=== PATIENT | female | born 1975 | race Caucasian/White ===

== ENCOUNTER 2021-06-08 18:18 | Inpatient (IN) ==
[2021-06-08] MEDS ORDERED: Naloxone 0.4 MG/ML INJ IVP PRN (22:25)
[2021-06-09 00:56] LABS: Calcium 7.3 mg/dL (8.6-10.3); Potassium 6.9 mEq/L (3.5-5.1)
[2021-06-09] MEDS ORDERED: 0.9 % Sodium Chloride 1,000 ML IVC SCH (01:00)
[2021-06-09 05:29] LABS: Basophils % 0.1 %; Eosinophils # 0.1 K/mcL (0.0-0.6); Eosinophils % 1.2 %; Hematocrit 24.4 % (35.3-44.9); Hemoglobin 7.1 g/dL (11.5-15.4); Immature Granulocytes % 0.3 % (0-4); Lymphocytes # 2.3 K/mcL (0.6-4.6); Lymphocytes % 34.3 %; Mean Corpuscular HGB Conc 29.1 g/dL (31.6-35.5); Mean Corpuscular Hemoglobin 27.6 pg (28.0-33.3); Mean Corpuscular Volume 94.9 fL (83.0-100.0); Mean Platelet Volume 10.7 fL (9.4-12.4); Monocytes # 0.4 K/mcL (0.0-1.3); Monocytes % 5.3 %; Platelet Count 111 K/mcL (140-400); Red Blood Count 2.57 M/mcL (3.82-4.97); Red Cell Distribution Width 13.7 % (11.5-14.5); Segmented Neutrophils % 58.8 %; White Blood Count 6.8 K/mcL (4.3-11.1)
[2021-06-09 05:48] LABS: Albumin/Globulin Ratio 1.7 (1.1-2.2); Bilirubin,Indirect 0.2 mg/dL (0.0-1.0); Bilirubin,Total 0.2 mg/dL (0.3-1.0); Globulin 1.8 g/dL (2.4-3.5); Total Protein 4.8 g/dL (6.4-8.9)
[2021-06-09 05:49] LABS: Calcium 7.3 mg/dL (8.6-10.3); Magnesium 1.5 mg/dL (1.6-2.6); Potassium 6.2 mEq/L (3.5-5.1)
[2021-06-09] MEDS ORDERED: *HR* Heparin 5,000 UNIT/ML VIAL SQ SCH (06:00)
[2021-06-09] MEDS ORDERED: Naloxone 0.4 MG/ML INJ IVP PRN (11:05)
[2021-06-09] MEDS: SODIUM ZIRCONIUM CYCLOSILICATE 5 GM POWD.PACK PO SCH (12:31)
[2021-06-09] MEDS ORDERED: Calcium Gluconate 1gm/50mL 1 GM/50 ML BAG IVPB ONE (12:53)
[2021-06-09] MEDS ORDERED: Magnesium Sulfate 1 GM/102 ML PIGGYBACK IVPB ONE (12:54)
[2021-06-09 16:55] LABS: Calcium 7.6 mg/dL (8.6-10.3); Potassium 5.7 mEq/L (3.5-5.1)
[2021-06-09] MEDS: *HR* Heparin 5,000 UNIT/ML VIAL SQ SCH (18:15)
[2021-06-09] MEDS ORDERED: hydrALAZINE 25 MG TABLET PO SCH (21:00)
[2021-06-09] MEDS: hydrALAZINE 25 MG TABLET PO SCH (21:01)
[2021-06-10] MEDS ORDERED: Gabapentin 400 MG CAPSULE PO ONE (00:45)
[2021-06-10] MEDS: *HR* Heparin 5,000 UNIT/ML VIAL SQ SCH ×2 (05:12→17:15)
[2021-06-10 06:18] LABS: Calcium 7.7 mg/dL (8.6-10.3); Potassium 5.4 mEq/L (3.5-5.1); Red Blood Count 2.69 M/mcL (3.82-4.97); White Blood Count 7.6 K/mcL (4.3-11.1)
[2021-06-10 06:19] LABS: Hematocrit 24.5 % (35.3-44.9); Hemoglobin 7.4 g/dL (11.5-15.4); Mean Corpuscular HGB Conc 30.2 g/dL (31.6-35.5); Mean Corpuscular Hemoglobin 27.5 pg (28.0-33.3); Mean Corpuscular Volume 91.1 fL (83.0-100.0); Mean Platelet Volume 10.7 fL (9.4-12.4); Platelet Count 127 K/mcL (140-400); Red Cell Distribution Width 13.2 % (11.5-14.5)
[2021-06-10 06:19] LABS: VBG Ionized Calcium 1.12 mmol/L (1.15-1.35)
[2021-06-10] MEDS ORDERED: SUMAtriptan succinate 50 MG TABLET PO PRN (08:00)
[2021-06-10] MEDS ORDERED: Furosemide 20 MG TABLET PO PRN (08:13)
[2021-06-10] MEDS: SODIUM ZIRCONIUM CYCLOSILICATE 5 GM POWD.PACK PO SCH (08:21)
[2021-06-10] MEDS: Aspirin Enteric Coated 81 MG Tablet PO SCH (08:22)
[2021-06-10] MEDS: amLODIPine 5 MG TABLET PO SCH (08:23)
[2021-06-10] MEDS: FLUoxetine 20 MG CAPSULE PO SCH (08:23)
[2021-06-10] MEDS ORDERED: FLUoxetine 20 MG CAPSULE PO SCH (09:00)
[2021-06-10] MEDS ORDERED: Aspirin Enteric Coated 81 MG Tablet PO SCH (09:00)
[2021-06-10] MEDS: clonazePAM 0.5 MG TABLET PO SCH (10:46)
[2021-06-10] MEDS: Ascorbic Acid 500 MG TABLET PO SCH (10:46)
[2021-06-10] MEDS ORDERED: *HR* OxyCODONE/APAP 5/325 TABLET PO PRN (17:43)
[2021-06-10] MEDS: hydrALAZINE 25 MG TABLET PO SCH (20:26)
[2021-06-11 03:03] LABS: Basophils % 0.3 %; Eosinophils # 0.1 K/mcL (0.0-0.6); Eosinophils % 1.1 %; Hematocrit 24.2 % (35.3-44.9); Hemoglobin 7.2 g/dL (11.5-15.4); Immature Granulocytes % 0.2 % (0-4); Lymphocytes % 30.8 %; Mean Corpuscular HGB Conc 29.8 g/dL (31.6-35.5); Mean Corpuscular Volume 90.6 fL (83.0-100.0); Monocytes # 0.3 K/mcL (0.0-1.3); Monocytes % 4.4 %; Neutrophils # 4.2 K/mcL (1.6-8.9); Platelet Count 135 K/mcL (140-400); Red Blood Count 2.67 M/mcL (3.82-4.97); Red Cell Distribution Width 13.2 % (11.5-14.5); Segmented Neutrophils % 63.2 %; White Blood Count 6.6 K/mcL (4.3-11.1)
[2021-06-11 03:23] LABS: Calcium 7.7 mg/dL (8.6-10.3); Magnesium 1.5 mg/dL (1.6-2.6); Phosphorous 4.9 mg/dL (2.7-4.5)
[2021-06-11] MEDS: *HR* Heparin 5,000 UNIT/ML VIAL SQ SCH ×2 (05:34→17:21)
[2021-06-11] MEDS: Ondansetron 4 MG/2 ML VIAL IVP PRN ×2 (08:41→19:18)
[2021-06-11] MEDS: Aspirin Enteric Coated 81 MG Tablet PO SCH (10:40)
[2021-06-11] MEDS: SODIUM ZIRCONIUM CYCLOSILICATE 5 GM POWD.PACK PO SCH (10:41)
[2021-06-11] MEDS: amLODIPine 5 MG TABLET PO SCH (10:41)
[2021-06-11] MEDS: FLUoxetine 20 MG CAPSULE PO SCH (10:41)
[2021-06-11] MEDS: Ascorbic Acid 500 MG TABLET PO SCH (10:41)
[2021-06-11] MEDS: clonazePAM 0.5 MG TABLET PO SCH (10:41)
[2021-06-11 12:40] LABS: Bilirubin,Urine Negative (Negative); Blood,Urine Trace (Negative); Clarity,Urine Clear (Clear); Color,Urine Colorless (Yellow); Glucose,Urine (UA) Normal (Normal); Ketones,Urine Negative (Negative); Leukocyte Esterase,Urine Moderate (Negative); Mucus,Urine Few per lpf (None-Few); Nitrite,Urine Negative (Negative); Protein,Urine 200 mg/dL (Neg-Trace); Specific Gravity,Urine 1.009 (1.010-1.025); Squamous Epithelial Cell,Urine Few per hpf (None-Few); Urobilinogen,Urine Normal (Normal); WBC,Urine 30-50 per hpf (0-3)
[2021-06-11 13:13] LABS: Sodium, Urine 94.4 mEq/L
[2021-06-11] MEDS: Morphine Sulfate 2 MG/ML SYRINGE IVP PRN ×2 (19:18→22:59)
[2021-06-11] MEDS: hydrALAZINE 25 MG TABLET PO SCH (20:04)
[2021-06-12] MEDS: Ondansetron 4 MG/2 ML VIAL IVP PRN (00:54)
[2021-06-12] MEDS: *HR* Heparin 5,000 UNIT/ML VIAL SQ SCH ×2 (06:20→16:34)
[2021-06-12] MEDS: Morphine Sulfate 2 MG/ML SYRINGE IVP PRN ×2 (06:21→12:02)
[2021-06-12 09:25] LABS: Basophils % 0.3 %; Eosinophils # 0.1 K/mcL (0.0-0.6); Hematocrit 25.3 % (35.3-44.9); Hemoglobin 7.5 g/dL (11.5-15.4); Immature Granulocytes % 0.3 % (0-4); Lymphocytes # 1.6 K/mcL (0.6-4.6); Lymphocytes % 27.1 %; Mean Corpuscular HGB Conc 29.6 g/dL (31.6-35.5); Mean Corpuscular Hemoglobin 26.9 pg (28.0-33.3); Mean Corpuscular Volume 90.7 fL (83.0-100.0); Mean Platelet Volume 11.2 fL (9.4-12.4); Monocytes # 0.3 K/mcL (0.0-1.3); Monocytes % 4.8 %; Neutrophils # 3.9 K/mcL (1.6-8.9); Platelet Count 131 K/mcL (140-400); Red Blood Count 2.79 M/mcL (3.82-4.97); Red Cell Distribution Width 13.2 % (11.5-14.5); Segmented Neutrophils % 66.5 %; White Blood Count 5.9 K/mcL (4.3-11.1)
[2021-06-12 09:41] LABS: Calcium 8.1 mg/dL (8.6-10.3); Magnesium 1.7 mg/dL (1.6-2.6); Phosphorous 4.2 mg/dL (2.7-4.5); Potassium 5.3 mEq/L (3.5-5.1)
[2021-06-12] MEDS: Aspirin Enteric Coated 81 MG Tablet PO SCH (10:15)
[2021-06-12] MEDS: clonazePAM 0.5 MG TABLET PO SCH (10:16)
[2021-06-12] MEDS: FLUoxetine 20 MG CAPSULE PO SCH (10:16)
[2021-06-12] MEDS: amLODIPine 5 MG TABLET PO SCH (10:16)
[2021-06-12] MEDS: Ascorbic Acid 500 MG TABLET PO SCH (10:16)
[2021-06-12] MEDS ORDERED: SODIUM ZIRCONIUM CYCLOSILICATE 5 GM POWD.PACK PO STA (10:35)
[2021-06-12] MEDS: *HR* OxyCODONE/APAP 5/325 TABLET PO PRN (21:40)
[2021-06-12] MEDS: hydrALAZINE 25 MG TABLET PO SCH (21:40)
[2021-06-13 01:20] LABS: Basophils % 0.2 %; Eosinophils # 0.1 K/mcL (0.0-0.6); Hematocrit 23.7 % (35.3-44.9); Hemoglobin 7.1 g/dL (11.5-15.4); Immature Granulocytes % 0.2 % (0-4); Lymphocytes # 1.6 K/mcL (0.6-4.6); Mean Corpuscular Hemoglobin 26.8 pg (28.0-33.3); Mean Corpuscular Volume 89.4 fL (83.0-100.0); Mean Platelet Volume 10.3 fL (9.4-12.4); Monocytes # 0.2 K/mcL (0.0-1.3); Monocytes % 4.7 %; Platelet Count 120 K/mcL (140-400); Red Blood Count 2.65 M/mcL (3.82-4.97); Red Cell Distribution Width 13.2 % (11.5-14.5); Segmented Neutrophils % 61.9 %; White Blood Count 4.9 K/mcL (4.3-11.1)
[2021-06-13 01:41] LABS: Magnesium 1.5 mg/dL (1.6-2.6); Phosphorous 3.5 mg/dL (2.7-4.5); Potassium 5.2 mEq/L (3.5-5.1)
[2021-06-13] MEDS: *HR* Heparin 5,000 UNIT/ML VIAL SQ SCH ×2 (05:11→17:30)
[2021-06-13] MEDS: amLODIPine 5 MG TABLET PO SCH (09:48)
[2021-06-13] MEDS: Aspirin Enteric Coated 81 MG Tablet PO SCH (09:48)
[2021-06-13] MEDS: FLUoxetine 20 MG CAPSULE PO SCH (09:48)
[2021-06-13] MEDS: Ascorbic Acid 500 MG TABLET PO SCH (09:48)
[2021-06-13] MEDS: clonazePAM 0.5 MG TABLET PO SCH (09:48)
[2021-06-13] MEDS: Ondansetron 4 MG/2 ML VIAL IVP PRN (09:55)
[2021-06-13] MEDS: *HR* OxyCODONE/APAP 5/325 TABLET PO PRN ×2 (09:55→17:30)
[2021-06-13] MEDS: Morphine Sulfate 2 MG/ML SYRINGE IVP PRN ×2 (10:52→23:08)
[2021-06-13] MEDS: Magnesium Oxide 400 MG TABLET PO SCH (14:33)
[2021-06-13] MEDS: hydrALAZINE 25 MG TABLET PO SCH (19:58)
[2021-06-14 06:39] LABS: Basophils % 0.4 %; Eosinophils # 0.1 K/mcL (0.0-0.6); Eosinophils % 1.5 %; Hematocrit 24.1 % (35.3-44.9); Hemoglobin 7.4 g/dL (11.5-15.4); Immature Granulocytes % 0.2 % (0-4); Lymphocytes # 1.8 K/mcL (0.6-4.6); Mean Corpuscular HGB Conc 30.7 g/dL (31.6-35.5); Mean Corpuscular Hemoglobin 27.9 pg (28.0-33.3); Mean Corpuscular Volume 90.9 fL (83.0-100.0); Mean Platelet Volume 10.1 fL (9.4-12.4); Monocytes # 0.3 K/mcL (0.0-1.3); Monocytes % 4.9 %; Neutrophils # 3.3 K/mcL (1.6-8.9); Platelet Count 136 K/mcL (140-400); Red Blood Count 2.65 M/mcL (3.82-4.97); Red Cell Distribution Width 13.6 % (11.5-14.5); White Blood Count 5.5 K/mcL (4.3-11.1)
[2021-06-14 06:51] LABS: Calcium 8.2 mg/dL (8.6-10.3); Magnesium 1.9 mg/dL (1.6-2.6); Phosphorous 3.8 mg/dL (2.7-4.5); Potassium 5.2 mEq/L (3.5-5.1)
[2021-06-14] MEDS: Magnesium Oxide 400 MG TABLET PO SCH (08:59)
[2021-06-14] MEDS: clonazePAM 0.5 MG TABLET PO SCH (08:59)
[2021-06-14] MEDS: Aspirin Enteric Coated 81 MG Tablet PO SCH (08:59)
[2021-06-14] MEDS: Ascorbic Acid 500 MG TABLET PO SCH (08:59)
[2021-06-14] MEDS: FLUoxetine 20 MG CAPSULE PO SCH (08:59)
[2021-06-14] MEDS: amLODIPine 5 MG TABLET PO SCH (09:00)
[2021-06-14] MEDS: SODIUM ZIRCONIUM CYCLOSILICATE 5 GM POWD.PACK PO SCH (09:00)
[2021-06-14] MEDS: *HR* OxyCODONE/APAP 5/325 TABLET PO PRN ×2 (09:06→21:19)
[2021-06-14] MEDS: *HR* Heparin 5,000 UNIT/ML VIAL SQ SCH ×2 (09:07→17:27)
[2021-06-14] MEDS: Morphine Sulfate 2 MG/ML SYRINGE IVP PRN (14:25)
[2021-06-14] MEDS: hydrALAZINE 25 MG TABLET PO SCH (21:18)
[2021-06-15] MEDS: *HR* Heparin 5,000 UNIT/ML VIAL SQ SCH ×2 (06:00→18:01)
[2021-06-15 06:44] LABS: Basophils % 0.4 %; Eosinophils # 0.1 K/mcL (0.0-0.6); Eosinophils % 1.4 %; Hematocrit 25.7 % (35.3-44.9); Hemoglobin 7.9 g/dL (11.5-15.4); Immature Granulocytes % 0.2 % (0-4); Lymphocytes # 1.5 K/mcL (0.6-4.6); Lymphocytes % 31.1 %; Mean Corpuscular HGB Conc 30.7 g/dL (31.6-35.5); Mean Corpuscular Hemoglobin 27.7 pg (28.0-33.3); Mean Corpuscular Volume 90.2 fL (83.0-100.0); Mean Platelet Volume 10.3 fL (9.4-12.4); Monocytes # 0.2 K/mcL (0.0-1.3); Monocytes % 4.9 %; Platelet Count 130 K/mcL (140-400); Red Blood Count 2.85 M/mcL (3.82-4.97); Red Cell Distribution Width 13.8 % (11.5-14.5); White Blood Count 4.9 K/mcL (4.3-11.1)
[2021-06-15 08:02] LABS: Calcium 8.3 mg/dL (8.6-10.3); Magnesium 1.9 mg/dL (1.6-2.6); Potassium 5.1 mEq/L (3.5-5.1)
[2021-06-15] MEDS: SODIUM ZIRCONIUM CYCLOSILICATE 5 GM POWD.PACK PO SCH (08:28)
[2021-06-15] MEDS: Aspirin Enteric Coated 81 MG Tablet PO SCH (08:29)
[2021-06-15] MEDS: FLUoxetine 20 MG CAPSULE PO SCH (08:33)
[2021-06-15] MEDS: Ascorbic Acid 500 MG TABLET PO SCH (08:33)
[2021-06-15] MEDS: amLODIPine 5 MG TABLET PO SCH (08:33)
[2021-06-15] MEDS: Magnesium Oxide 400 MG TABLET PO SCH (08:34)
[2021-06-15] MEDS: clonazePAM 0.5 MG TABLET PO SCH (08:34)
[2021-06-15] MEDS: *HR* OxyCODONE/APAP 5/325 TABLET PO PRN ×2 (12:20→20:48)
[2021-06-15] MEDS ORDERED: levoFLOXacin 250 MG TABLET PO SCH (14:00)
[2021-06-15] MEDS: Morphine Sulfate 2 MG/ML SYRINGE IVP PRN ×2 (14:49→21:57)
[2021-06-15] MEDS: hydrALAZINE 25 MG TABLET PO SCH (20:43)
[2021-06-16 02:35] LABS: Basophils % 0.2 %; Eosinophils # 0.1 K/mcL (0.0-0.6); Eosinophils % 1.4 %; Hematocrit 25.8 % (35.3-44.9); Hemoglobin 7.7 g/dL (11.5-15.4); Immature Granulocytes % 0.2 % (0-4); Lymphocytes # 1.5 K/mcL (0.6-4.6); Lymphocytes % 26.3 %; Mean Corpuscular HGB Conc 29.8 g/dL (31.6-35.5); Mean Corpuscular Volume 90.5 fL (83.0-100.0); Mean Platelet Volume 10.1 fL (9.4-12.4); Monocytes # 0.3 K/mcL (0.0-1.3); Neutrophils # 3.9 K/mcL (1.6-8.9); Platelet Count 129 K/mcL (140-400); Red Blood Count 2.85 M/mcL (3.82-4.97); Segmented Neutrophils % 66.9 %; White Blood Count 5.8 K/mcL (4.3-11.1)
[2021-06-16 02:50] LABS: Magnesium 1.9 mg/dL (1.6-2.6); Phosphorous 3.9 mg/dL (2.7-4.5); Potassium 5.2 mEq/L (3.5-5.1)
[2021-06-16] MEDS: *HR* Heparin 5,000 UNIT/ML VIAL SQ SCH ×2 (05:29→16:28)
[2021-06-16] MEDS: MetroNIDAZOLE 500 MG/100 ML 500 MG/100 ML BAG IVPB SCH ×3 (09:41→23:03)
[2021-06-16] MEDS: Aspirin Enteric Coated 81 MG Tablet PO SCH (09:44)
[2021-06-16] MEDS: clonazePAM 0.5 MG TABLET PO SCH (09:44)
[2021-06-16] MEDS: SODIUM ZIRCONIUM CYCLOSILICATE 5 GM POWD.PACK PO SCH (09:45)
[2021-06-16] MEDS: amLODIPine 5 MG TABLET PO SCH (09:45)
[2021-06-16] MEDS: Magnesium Oxide 400 MG TABLET PO SCH (09:45)
[2021-06-16] MEDS: FLUoxetine 20 MG CAPSULE PO SCH (09:45)
[2021-06-16] MEDS: Ascorbic Acid 500 MG TABLET PO SCH (09:46)
[2021-06-16 10:04] LABS: Albumin 3.3 g/dL (3.5-5.7); Albumin/Globulin Ratio 1.4 (1.1-2.2); Bilirubin,Indirect 0.2 mg/dL (0.0-1.0); Bilirubin,Total 0.2 mg/dL (0.3-1.0); Globulin 2.4 g/dL (2.4-3.5); Total Protein 5.7 g/dL (6.4-8.9)
[2021-06-16] MEDS: hydrALAZINE 25 MG TABLET PO SCH (20:09)
[2021-06-16] MEDS: Morphine Sulfate 2 MG/ML SYRINGE IVP PRN (20:34)
[2021-06-17 01:01] LABS: Basophils % 0.2 %; Hemoglobin 8.2 g/dL (11.5-15.4); Immature Granulocytes % 0.5 % (0-4); Lymphocytes # 1.1 K/mcL (0.6-4.6); Lymphocytes % 26.7 %; Mean Corpuscular HGB Conc 30.4 g/dL (31.6-35.5); Mean Corpuscular Hemoglobin 27.6 pg (28.0-33.3); Mean Corpuscular Volume 90.9 fL (83.0-100.0); Mean Platelet Volume 9.7 fL (9.4-12.4); Monocytes # 0.2 K/mcL (0.0-1.3); Monocytes % 5.1 %; Neutrophils # 2.8 K/mcL (1.6-8.9); Platelet Count 127 K/mcL (140-400); Red Blood Count 2.97 M/mcL (3.82-4.97); Red Cell Distribution Width 13.8 % (11.5-14.5); Segmented Neutrophils % 66.5 %; White Blood Count 4.2 K/mcL (4.3-11.1)
[2021-06-17 01:23] LABS: Calcium 8.4 mg/dL (8.6-10.3); Magnesium 1.7 mg/dL (1.6-2.6); Phosphorous 3.3 mg/dL (2.7-4.5); Potassium 4.8 mEq/L (3.5-5.1)
[2021-06-17] MEDS: *HR* Heparin 5,000 UNIT/ML VIAL SQ SCH ×2 (05:33→18:12)
[2021-06-17] MEDS: MetroNIDAZOLE 500 MG/100 ML 500 MG/100 ML BAG IVPB SCH ×2 (09:07→15:25)
[2021-06-17] MEDS: SODIUM ZIRCONIUM CYCLOSILICATE 5 GM POWD.PACK PO SCH (09:08)
[2021-06-17] MEDS: amLODIPine 5 MG TABLET PO SCH (09:09)
[2021-06-17] MEDS: clonazePAM 0.5 MG TABLET PO SCH (09:09)
[2021-06-17] MEDS: Magnesium Oxide 400 MG TABLET PO SCH (09:09)
[2021-06-17] MEDS: Aspirin Enteric Coated 81 MG Tablet PO SCH (09:09)
[2021-06-17] MEDS: Ascorbic Acid 500 MG TABLET PO SCH (09:09)
[2021-06-17] MEDS: Morphine Sulfate 2 MG/ML SYRINGE IVP PRN ×3 (09:10→22:07)
[2021-06-17] MEDS: FLUoxetine 20 MG CAPSULE PO SCH (09:10)
[2021-06-17] MEDS ORDERED: *HR* Propofol 200 MG/20 ML VIAL IVP ONE ×2 (12:46→13:20)
[2021-06-17] MEDS ORDERED: Lidocaine -MPF 2% 5 ML VIAL ONE (13:12)
[2021-06-17] MEDS: Sodium Bicarbonate 75 MEQ in 0.45 % Sodium Chloride 1,000 ML IVC SCH (14:31)
[2021-06-17] MEDS: hydrALAZINE 25 MG TABLET PO SCH (19:37)
[2021-06-17] MEDS: Ondansetron 4 MG/2 ML VIAL IVP PRN (22:05)
[2021-06-18] MEDS: MetroNIDAZOLE 500 MG/100 ML 500 MG/100 ML BAG IVPB SCH ×3 (00:08→15:06)
[2021-06-18 03:37] LABS: Basophils % 0.2 %; Hematocrit 23.6 % (35.3-44.9); Hemoglobin 7.5 g/dL (11.5-15.4); Immature Granulocytes % 0.2 % (0-4); Lymphocytes # 1.3 K/mcL (0.6-4.6); Lymphocytes % 30.9 %; Mean Corpuscular HGB Conc 31.8 g/dL (31.6-35.5); Mean Corpuscular Hemoglobin 28.3 pg (28.0-33.3); Mean Corpuscular Volume 89.1 fL (83.0-100.0); Mean Platelet Volume 9.8 fL (9.4-12.4); Monocytes # 0.2 K/mcL (0.0-1.3); Monocytes % 4.3 %; Neutrophils # 2.6 K/mcL (1.6-8.9); Platelet Count 111 K/mcL (140-400); Red Blood Count 2.65 M/mcL (3.82-4.97); Red Cell Distribution Width 14.1 % (11.5-14.5); Segmented Neutrophils % 63.4 %; White Blood Count 4.1 K/mcL (4.3-11.1)
[2021-06-18 03:56] LABS: Magnesium 1.7 mg/dL (1.6-2.6); Phosphorous 3.9 mg/dL (2.7-4.5); Potassium 4.4 mEq/L (3.5-5.1)
[2021-06-18] MEDS: *HR* Heparin 5,000 UNIT/ML VIAL SQ SCH (05:20)
[2021-06-18] MEDS: Sodium Bicarbonate 75 MEQ in 0.45 % Sodium Chloride 1,000 ML IVC SCH ×2 (06:26→21:31)
[2021-06-18] MEDS: Ascorbic Acid 500 MG TABLET PO SCH (09:25)
[2021-06-18] MEDS: clonazePAM 0.5 MG TABLET PO SCH (09:25)
[2021-06-18] MEDS: Aspirin Enteric Coated 81 MG Tablet PO SCH (09:25)
[2021-06-18] MEDS: Magnesium Oxide 400 MG TABLET PO SCH (09:25)
[2021-06-18] MEDS: FLUoxetine 20 MG CAPSULE PO SCH (09:25)
[2021-06-18] MEDS: SODIUM ZIRCONIUM CYCLOSILICATE 5 GM POWD.PACK PO SCH (09:26)
[2021-06-18] MEDS: amLODIPine 5 MG TABLET PO SCH (09:26)
[2021-06-18] MEDS: *HR* OxyCODONE/APAP 5/325 TABLET PO PRN ×2 (09:33→21:37)
[2021-06-18] MEDS: Ondansetron 4 MG/2 ML VIAL IVP PRN (09:33)
[2021-06-18] MEDS ORDERED: Acetaminophen 325 MG TABLET PO PRN (12:39)
[2021-06-18] MEDS: hydrALAZINE 25 MG TABLET PO SCH (19:30)
[2021-06-19] MEDS: MetroNIDAZOLE 500 MG/100 ML 500 MG/100 ML BAG IVPB SCH ×2 (00:10→08:25)
[2021-06-19 03:57] LABS: Basophils % 0.2 %; Eosinophils # 0.1 K/mcL (0.0-0.6); Eosinophils % 1.2 %; Hematocrit 23.8 % (35.3-44.9); Hemoglobin 7.3 g/dL (11.5-15.4); Immature Granulocytes % 0.5 % (0-4); Lymphocytes # 1.3 K/mcL (0.6-4.6); Lymphocytes % 33.1 %; Mean Corpuscular HGB Conc 30.7 g/dL (31.6-35.5); Mean Corpuscular Hemoglobin 27.2 pg (28.0-33.3); Mean Corpuscular Volume 88.8 fL (83.0-100.0); Mean Platelet Volume 9.9 fL (9.4-12.4); Monocytes # 0.2 K/mcL (0.0-1.3); Monocytes % 5.7 %; Neutrophils # 2.4 K/mcL (1.6-8.9); Platelet Count 113 K/mcL (140-400); Red Blood Count 2.68 M/mcL (3.82-4.97); Segmented Neutrophils % 59.3 %; White Blood Count 4.1 K/mcL (4.3-11.1)
[2021-06-19 04:12] LABS: Calcium 7.4 mg/dL (8.6-10.3); Magnesium 1.5 mg/dL (1.6-2.6); Phosphorous 3.3 mg/dL (2.7-4.5); Potassium 4.1 mEq/L (3.5-5.1)
[2021-06-19] MEDS: amLODIPine 5 MG TABLET PO SCH (08:26)
[2021-06-19] MEDS: FLUoxetine 20 MG CAPSULE PO SCH (08:26)
[2021-06-19] MEDS: Aspirin Enteric Coated 81 MG Tablet PO SCH (08:26)
[2021-06-19] MEDS: Ascorbic Acid 500 MG TABLET PO SCH (08:26)
[2021-06-19] MEDS: Magnesium Oxide 400 MG TABLET PO SCH (08:26)
[2021-06-19] MEDS: clonazePAM 0.5 MG TABLET PO SCH (08:26)
[2021-06-19 10:56] VITALS: BP 126/72; PULSE 83; TEMP 98.4; O2SAT 98
== END 2021-06-19 15:00 | disposition home health service (06) | DRG 469 ==
LOC: ICNU 21:13 → SUATTDRO 21:13 → 2ANU 06-09 17:48
PROVIDERS: ADMIT Family Medicine; ATTEND Internal Medicine
PROC: ENDOEBX (2021-06-17 13:50)

== ENCOUNTER 2021-10-31 17:53 | Inpatient (IN) ==
[2021-10-31] MEDS ORDERED: Ondansetron 4 MG/2 ML VIAL IVP PRN (22:19)
[2021-10-31] MEDS ORDERED: Acetaminophen 325 MG TABLET PO PRN (22:19)
[2021-10-31] MEDS ORDERED: Naloxone 0.4 MG/ML INJ IVP PRN (22:19)
[2021-10-31] MEDS ORDERED: Ipratropium/Albuterol Neb 3 ML IH PRN (22:23)
[2021-10-31] MEDS ORDERED: Calcium Gluconate 1gm/50mL 1 GM/50 ML BAG IVPB ONE (22:29)
[2021-10-31 23:21] LABS: VBG HCO3 14 mEq/L (21-27); VBG PCO2 33 mmHg (41-51); VBG PH 7.23 pH Units (7.32-7.42); VBG PO2 51 mmHg (25-50)
[2021-10-31 23:45] LABS: Bacteria,Urine Few per hpf (None-Few); Bilirubin,Urine Negative (Negative); Blood,Urine Small (Negative); Clarity,Urine Turbid (Clear); Color,Urine Light-Yellow (Yellow); Glucose,Urine (UA) Normal (Normal); Ketones,Urine Negative (Negative); Leukocyte Esterase,Urine Small (Negative); Mucus,Urine Few per lpf (None-Few); Nitrite,Urine Negative (Negative); Protein,Urine 200 mg/dL (Neg-Trace); Specific Gravity,Urine 1.011 (1.010-1.025); Squamous Epithelial Cell,Urine Few per hpf (None-Few); Urobilinogen,Urine Normal (Normal); WBC,Urine 30-50 per hpf (0-3)
[2021-10-31 23:55] LABS: Amphetamine Screen,Urine Negative ng/mL (Cutoff=1000); Barbiturate Screen,Urine Negative ng/mL (Cutoff=200); Benzodiazepines Screen,Urine Negative ng/mL (Cutoff=200); Cannabinoid Screen,Urine Negative ng/mL (Cutoff = 50); Cocaine Screen,Urine Negative ng/mL (Cutoff= 300); Opiate Screen,Urine Negative ng/mL (Cutoff=300); Phencyclidine Screen,Urine Negative ng/mL (Cutoff=25)
[2021-11-01] MEDS ORDERED: Ringers Solution, Lactated 250 ML IVC ONE (00:04)
[2021-11-01] MEDS ORDERED: D5% in Water 1,000 ML IVC PRN (00:06)
[2021-11-01] MEDS ORDERED: Dextrose Gel 15 GM/37.5 ML TUBE PO PRN ×2 (00:06)
[2021-11-01] MEDS ORDERED: *HR* Dextrose 50 % in Water (Syg) 50 ML SYRINGE IVP PRN (00:06)
[2021-11-01] MEDS ORDERED: Ringers Solution, Lactated 1,000 ML IVC SCH (00:15)
[2021-11-01 01:18] LABS: Adenovirus Not Detected (Not Detect); Coronavirus 229E Not Detected (Not Detect); Coronavirus HKU1 Not Detected (Not Detect); Coronavirus NL63 Not Detected (Not Detect); Coronavirus OC43 Not Detected (Not Detect)
[2021-11-01 01:20] LABS: Bordetella Pertussis Not Detected (Not Detect); Chlamydophila pneumoniae Not Detected (Not Detect); Human Metapneumovirus Not Detected (Not Detect); Human Rhinovirus/Enterovirus Not Detected (Not Detect); Influenza A Subtype 2009 H1 Not Detected (Not Detect); Influenza B Not Detected (Not Detect); Mycoplasma pneumoniae Not Detected (Not Detect); Parainfluenza Virus 1 Not Detected (Not Detect); Parainfluenza Virus 2 Not Detected (Not Detect); Parainfluenza Virus 3 Not Detected (Not Detect); Parainfluenza Virus 4 Not Detected (Not Detect); Respiratory Syncytial Virus Not Detected (Not Detect); SARS-CoV-2 DETECTED (Not Detect)
[2021-11-01 03:35] LABS: Amorphous Sediment,Urine Few per hpf (None-Few); Bacteria,Urine Few per hpf (None-Few); Bilirubin,Urine Negative (Negative); Blood,Urine Small (Negative); Clarity,Urine Clear (Clear); Color,Urine Light-Yellow (Yellow); Glucose,Urine (UA) Normal (Normal); Hyaline Casts,Urine Few per lpf (None Seen); Ketones,Urine Negative (Negative); Leukocyte Esterase,Urine Small (Negative); Mucus,Urine Few per lpf (None-Few); Nitrite,Urine Negative (Negative); Protein,Urine 200 mg/dL (Neg-Trace); Specific Gravity,Urine 1.011 (1.010-1.025); Squamous Epithelial Cell,Urine Few per hpf (None-Few); Urobilinogen,Urine Normal (Normal); WBC,Urine 15-30 per hpf (0-3)
[2021-11-01 03:40] LABS: Sodium, Urine 71.1 mEq/L
[2021-11-01] MEDS: Ringers Solution, Lactated 1,000 ML IVC SCH (04:02)
[2021-11-01 04:27] LABS: INR 1.1; Prothrombin Time 12.3 Seconds (9.4-12.1)
[2021-11-01 04:29] LABS: Hematocrit 26.6 % (35.3-44.9); Immature Granulocytes % 0.7 % (0-4); Lymphocytes # 0.5 K/mcL (0.6-4.6); Lymphocytes % 11.9 %; Mean Corpuscular HGB Conc 30.1 g/dL (31.6-35.5); Mean Corpuscular Hemoglobin 27.1 pg (28.0-33.3); Mean Corpuscular Volume 90.2 fL (83.0-100.0); Mean Platelet Volume 11.2 fL (9.4-12.4); Monocytes # 0.1 K/mcL (0.0-1.3); Monocytes % 3.2 %; Neutrophils # 3.4 K/mcL (1.6-8.9); Nucleated Red Blood Cells 0.7 /100 WBC (0); Platelet Count 159 K/mcL (140-400); Red Blood Count 2.95 M/mcL (3.82-4.97); Red Cell Distribution Width 15.2 % (11.5-14.5); Segmented Neutrophils % 84.2 %
[2021-11-01 04:30] LABS: Albumin/Globulin Ratio 0.9 (1.1-2.2); Bilirubin,Total 0.2 mg/dL (0.3-1.0); Calcium 7.2 mg/dL (8.6-10.3); Globulin 2.3 g/dL (2.4-3.5); Potassium 4.3 mEq/L (3.5-5.1); Total Protein 4.3 g/dL (6.4-8.9)
[2021-11-01 04:34] LABS: Albumin 2.1 g/dL (3.5-5.7); Albumin/Globulin Ratio 0.9 (1.1-2.2); Bilirubin,Indirect 0.2 mg/dL (0.0-1.0); Bilirubin,Total 0.2 mg/dL (0.3-1.0); Globulin 2.3 g/dL (2.4-3.5); Total Protein 4.4 g/dL (6.4-8.9)
[2021-11-01 04:36] LABS: Calcium 7.2 mg/dL (8.6-10.3); Chol/HDL Ratio 6.8 (0-4.9); Magnesium 1.4 mg/dL (1.6-2.6); Potassium 4.3 mEq/L (3.5-5.1)
[2021-11-01 04:45] LABS: Thyroid Stimulating Hormone 1.635 mcIU/mL (0.340-5.600)
[2021-11-01] MEDS: *HR* Heparin 5,000 UNIT/ML VIAL SQ SCH ×2 (06:19→17:36)
[2021-11-01] MEDS: Insulin LISPRO 300 UNITS/3 ML VIAL SUBQ SCH ×4 (06:23→23:22)
[2021-11-01 06:33] LABS: Estimated Average Glucose 114 mg/dl; Hemoglobin A1C 5.6 %
[2021-11-01] MEDS ORDERED: Cefepime HCl 2,000 MG in 0.9 % Sodium Chloride Mini Bag 100 ML IVPB SCH (08:00)
[2021-11-01] MEDS ORDERED: Ringers Solution, Lactated 2,000 ML IVC ONE (12:33)
[2021-11-01] MEDS ORDERED: Isovue-370 500 ML BOTTLE IVP ONE (12:45)
[2021-11-01] MEDS: Pantoprazole 40 MG VIAL IVP SCH ×2 (17:35→17:36)
[2021-11-01] MEDS: DAPTOmycin 500 MG in 0.9 % Sodium Chloride 100 ML IVPB SCH (17:35)
[2021-11-01] MEDS: cefTRIAXone 2,000 MG in 0.9 % Sodium Chloride Mini Bag 100 ML IVP SCH (17:35)
[2021-11-01] MEDS ORDERED: Insulin DETEMIR 100 UNIT/ML X5UNITS SUBQ SCH (21:00)
[2021-11-02 05:01] LABS: Hematocrit 27.7 % (35.3-44.9); Hemoglobin 8.2 g/dL (11.5-15.4); Mean Corpuscular HGB Conc 29.6 g/dL (31.6-35.5); Mean Corpuscular Volume 91.1 fL (83.0-100.0); Platelet Count 187 K/mcL (140-400); Red Blood Count 3.04 M/mcL (3.82-4.97); Red Cell Distribution Width 15.4 % (11.5-14.5); White Blood Count 5.5 K/mcL (4.3-11.1)
[2021-11-02 05:13] LABS: Calcium 7.3 mg/dL (8.6-10.3); Potassium 4.3 mEq/L (3.5-5.1)
[2021-11-02] MEDS: Insulin LISPRO 300 UNITS/3 ML VIAL SUBQ SCH ×3 (05:20→17:35)
[2021-11-02] MEDS: *HR* Heparin 5,000 UNIT/ML VIAL SQ SCH ×2 (05:32→17:53)
[2021-11-02] MEDS: Pantoprazole 40 MG VIAL IVP SCH ×2 (05:32→17:53)
[2021-11-02] MEDS ORDERED: levETIRAcetam 1,000 MG in 0.9 % Sodium Chloride 100 ML IVPB ONE (10:28)
[2021-11-02] MEDS ORDERED: Fosphenytoin 1,000 MG.PE in 0.9 % Sodium Chloride 50 ML IVPB ONE (14:10)
[2021-11-02] MEDS ORDERED: *HR* LORazepam 2 MG/ML VIAL IVP ONE (14:15)
[2021-11-02] MEDS: cefTRIAXone 2,000 MG in 0.9 % Sodium Chloride Mini Bag 100 ML IVP SCH (17:53)
[2021-11-02] MEDS: Norepinephrine 4 MG/254 ML IV.SOLN IVC SCH (20:02)
[2021-11-03] MEDS: Insulin LISPRO 300 UNITS/3 ML VIAL SUBQ SCH ×4 (01:48→21:21)
[2021-11-03] MEDS: Norepinephrine 4 MG/254 ML IV.SOLN IVC SCH ×2 (03:58→20:40)
[2021-11-03] MEDS: Pantoprazole 40 MG VIAL IVP SCH ×2 (04:32→20:40)
[2021-11-03] MEDS: *HR* Heparin 5,000 UNIT/ML VIAL SQ SCH ×2 (04:32→20:41)
[2021-11-03 05:07] LABS: Hematocrit 27.2 % (35.3-44.9); Hemoglobin 8.3 g/dL (11.5-15.4); Mean Corpuscular HGB Conc 30.5 g/dL (31.6-35.5); Mean Corpuscular Hemoglobin 27.9 pg (28.0-33.3); Mean Corpuscular Volume 91.3 fL (83.0-100.0); Mean Platelet Volume 11.3 fL (9.4-12.4); Platelet Count 212 K/mcL (140-400); Red Blood Count 2.98 M/mcL (3.82-4.97); Red Cell Distribution Width 15.8 % (11.5-14.5)
[2021-11-03 05:10] LABS: White Blood Count 12.4 K/mcL (4.3-11.1)
[2021-11-03 05:30] LABS: Calcium 7.5 mg/dL (8.6-10.3); Potassium 4.5 mEq/L (3.5-5.1)
[2021-11-03] MEDS: DAPTOmycin 500 MG in 0.9 % Sodium Chloride 100 ML IVPB SCH (12:08)
[2021-11-03 14:52] LABS: ABG Base Excess -22 mEq/L (-2 to 3); ABG HCO3 7 mEq/L (21-27); ABG Oxygen Saturation 93 % (95-98); ABG PCO2 25 mmHg (35-45); ABG PH 7.06 pH Units (7.32-7.45); ABG PO2 94 mmHg (85-104); ABG TCO2 8 mEq/L (20-26); Blood Gas Modality BiLevel
[2021-11-03] MEDS ORDERED: Sodium Bicarbonate 150 MEQ in D5% in Water 1,000 ML IVC SCH (15:30)
[2021-11-03] MEDS: cefTRIAXone 2,000 MG in 0.9 % Sodium Chloride Mini Bag 100 ML IVP SCH (16:24)
[2021-11-04] MEDS: Insulin LISPRO 300 UNITS/3 ML VIAL SUBQ SCH ×2 (00:52→06:02)
[2021-11-04] MEDS: Sodium Bicarbonate 150 MEQ in D5% in Water 1,000 ML IVC SCH ×3 (02:16→10:45)
[2021-11-04] MEDS: Pantoprazole 40 MG VIAL IVP SCH (04:49)
[2021-11-04] MEDS: *HR* Heparin 5,000 UNIT/ML VIAL SQ SCH (04:49)
[2021-11-04 06:25] LABS: Basophils % 0.1 %; Hemoglobin 7.7 g/dL (11.5-15.4); Lymphocytes # 0.9 K/mcL (0.6-4.6); Lymphocytes % 5.8 %; Mean Corpuscular HGB Conc 29.6 g/dL (31.6-35.5); Mean Corpuscular Hemoglobin 26.5 pg (28.0-33.3); Mean Corpuscular Volume 89.3 fL (83.0-100.0); Mean Platelet Volume 10.7 fL (9.4-12.4); Monocytes # 0.2 K/mcL (0.0-1.3); Neutrophils # 14.9 K/mcL (1.6-8.9); Platelet Count 260 K/mcL (140-400); Red Blood Count 2.91 M/mcL (3.82-4.97); Red Cell Distribution Width 15.9 % (11.5-14.5); Segmented Neutrophils % 92.1 %; White Blood Count 16.2 K/mcL (4.3-11.1)
[2021-11-04 06:50] LABS: Anisocytosis 1+ (Not Present); Platelet Estimate Normal (Normal)
[2021-11-04] MEDS: Ringers Solution, Lactated 1,000 ML IVC SCH (07:20)
[2021-11-04 08:12] LABS: Calcium 7.2 mg/dL (8.6-10.3); Potassium 4.3 mEq/L (3.5-5.1)
[2021-11-04] MEDS: Norepinephrine 4 MG/254 ML IV.SOLN IVC SCH (08:35)
[2021-11-04 08:42] LABS: ABG Base Excess -7 mEq/L (-2 to 3); ABG HCO3 20 mEq/L (21-27); ABG Oxygen Saturation 82 % (95-98); ABG PCO2 42 mmHg (35-45); ABG PH 7.28 pH Units (7.32-7.45); ABG PO2 52 mmHg (85-104); ABG TCO2 21 mEq/L (20-26)
[2021-11-04] MEDS ORDERED: *HR* FentaNYL (PF) 100 MCG/2 ML VIAL IVP PRN (10:53)
[2021-11-04] MEDS ORDERED: Atropine 1% Opth Drops 100 DROP/5 ML BOTTLE SL PRN (10:57)
[2021-11-04 16:10] VITALS: PULSE 73
[2021-11-04] MEDS: *HR* FentaNYL (PF) 100 MCG/2 ML VIAL IVP PRN ×3 (16:21→20:07)
[2021-11-04] MEDS: *HR* LORazepam 2 MG/ML VIAL IVP PRN ×3 (16:22→20:07)
[2021-11-04 18:23] VITALS: BP 116/64; TEMP 99; O2SAT 73
[2021-11-05 12:20] LABS: Amphetamines NEGATIVE ng/mL (Cutoff 20); Barbiturates NEGATIVE ng/mL (Cutoff 50); Benzodiazepines NEGATIVE ng/mL (Cutoff 50); Buprenorphine NEGATIVE ng/mL (Cutoff 1); Cocaine NEGATIVE ng/mL (Cutoff 20); Methadone NEGATIVE ng/mL (Cutoff 25); Methamphetamines NEGATIVE ng/mL (Cutoff 20); Opiates NEGATIVE ng/mL (Cutoff 20); Phencyclidine NEGATIVE ng/mL (Cutoff 10)
== END 2021-11-04 23:46 | disposition expired | DRG 720 ==
LOC: 3NENU → SUATTDRO 22:30 → ICNU 11-02 17:30 → 2NNU 11-02 17:31 → 2ANU 11-04 15:59
PROVIDERS: ADMIT Internal Medicine; ATTEND Internal Medicine